=== PATIENT | female | born 1975 | race Caucasian/White ===

== ENCOUNTER 2021-04-01 16:27 | Emergency (ER) | payer OTHER ==
[~2021-04-01 16:27] MED LIST: CLARITIN10 MG PO; FLONASE 0.05% N16 GM; GERITOL COMPLE1 EACH PO; MEDROL4 MG PO; NABUMETONE500 MG PO; PERCOCET 10-321 EACH PO; ROPINIROLE HCL1 MG PO; ULTRAM50 MG PO; VITAMIN D35000 UNI1 PO
[2021-04-01] MEDS ORDERED: HYDROCODON-ACE1 EAC4 PO (17:01)
== END 2021-04-01 17:40 | disposition home or self-care (01) ==
LOC: ER1 16:27
DX: M25.511 Pain in right shoulder (principal)
CPT/HCPCS: 96372; 99283; J1885